=== PATIENT | female | born 1965 | race Caucasian/White ===

== ENCOUNTER 2023-04-03 15:20 | Emergency (ER) | payer OTHER ==
[2023-04-03 15:35] VITALS: BP 149/65; PULSE 71; RESP 19; TEMP 98.4; BMI 50.0
[2023-04-03] MEDS ORDERED: KETOROLAC TROMETHAMINE 30 MG/1 ML VIAL IM ONE (16:26)
[2023-04-03] MEDS ORDERED: KETOROLAC TROMETHAMINE 30 MG/1 ML VIAL ONE (16:29)
== END 2023-04-03 16:41 | disposition home or self-care (01) ==
LOC: JERFT 15:20
PROC: 3E0233Z Introduction of Anti-inflammatory into Muscle, Percutaneous Approach (ICD-10-PCS; principal; 2023-04-03)
DX: S39.012A Strain of muscle, fascia and tendon of lower back, initial encounter (principal); X50.0XXA Overexertion from strenuous movement or load, initial encounter
CPT/HCPCS: 99285-25